=== PATIENT | male | born 1940 | race Caucasian/White ===

== ENCOUNTER 2017-11-28 11:53 | Inpatient (IN) | payer OTHER ==
[~2017-11-28] VITALS: Ht 177.8 cm; Wt 98.4 kg
[2017-11-28] MEDS ORDERED: SODIUM CHLORIDE 0.9% 1000ML 1,000 ML IV STA (12:03)
[2017-11-28] MEDS ORDERED: MORPHINE SULFATE 2 MG/ML SYR IV STA (12:03)
[2017-11-28] MEDS ORDERED: ONDANSETRON HCL INJ 2 MG/ML VIAL IV STA (12:03)
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
[2017-11-28 13:04] LABS: BASOPHILS % 0.5 % (0.0-1.0); EOSINOPHILS # (AUTO) 0.3 (0.0-0.4); EOSINOPHILS % 3.1 % (0.0-6.0); HEMATOCRIT 37.2 % (38.2-49.6); HEMOGLOBIN 12.6 g/dL (14.0-18.0); LYMPHOCYTES # (AUTO) 1.2 (1.0-3.2); MEAN CORPUSCULAR HGB CONC 33.9 g/dL (31-35); MEAN CORPUSCULAR VOLUME 91.6 fL (81-99); MONOCYTES # (AUTO) 0.8 (0.2-0.8); MONOCYTES % 9.9 % (4.4-11.3); PLATELET COUNT 220 x10e3/uL (140-360); RED BLOOD COUNT 4.06 x10e6/uL (4.3-5.7); RED CELL DISTRIBUTION WIDTH 13.1 % (11.7-14.4)
[2017-11-28 13:13] LABS: INR 1.09; PROTHROMBIN TIME 13.3 seconds (11.9-14.5)
[2017-11-28 13:14] LABS: PARTIAL THROMBOPLASTIN TIME 38.8 seconds (23.8-35.5)
[2017-11-28] MEDS ORDERED: ONDANSETRON HCL INJ 2 MG/ML VIAL IV PRN (13:15)
[2017-11-28] MEDS ORDERED: SODIUM CHLORIDE FLUSH 10 ML SYR INJ PRN (13:15)
[2017-11-28] MEDS: VANCOMYCIN 1GM/NS 250 ML 250 ML IV SCH (13:21)
[2017-11-28 13:24] LABS: ALBUMIN 3.4 g/dL (3.5-5.0); ALBUMIN/GLOBULIN RATIO 1.1 (0.8-2.0); CALCIUM 9.1 mg/dL (8.4-10.2); CREATININE, SERUM 1.18 mg/dL (0.72-1.25); MAGNESIUM 1.8 MG/DL (1.3-2.1)
[2017-11-28 13:43] LABS: CREATINE KINASE MB 2.6 ng/mL (0-5.0); THYROID STIMULATING HORMONE 1.746 uIU/mL (0.350-4.940)
[2017-11-28] MEDS ORDERED: HYDROCODONE/APAP 10MG-325MG TAB PO ONE (14:15)
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
[2017-11-28] MEDS: PIPER-TAZ 3.375 GM 50 ML IV SCH ×2 (15:15→22:44)
[2017-11-28] MEDS ORDERED: HYDROCODONE/APAP 10MG-325MG TAB PO PRN (16:30)
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
[2017-11-28] MEDS ORDERED: SODIUM CHLORIDE 0.9% 1000ML 1,000 ML ONE (23:08)
[2017-11-28 23:45] VITALS: BP 161/94
[2017-11-29] MEDS: VANCOMYCIN 1GM/NS 250 ML 250 ML IV SCH ×2 (00:20→12:15)
[2017-11-29] MEDS ORDERED: DOXEPIN HCL25 MG PO (04:46)
[2017-11-29] MEDS ORDERED: ZOLPIDEM TARTRAT5 MG PO (04:46)
[2017-11-29] MEDS ORDERED: LIPITOR20 MG PO (04:46)
[2017-11-29] MEDS ORDERED: SYNTHROID88 MCG PO (04:46)
[2017-11-29] MEDS ORDERED: ALLOPURINOL300 MG PO (04:46)
[2017-11-29] MEDS ORDERED: SOMA350 MG PO (04:46)
[2017-11-29] MEDS: PIPER-TAZ 3.375 GM 50 ML IV SCH ×2 (06:06→14:00)
[2017-11-29 06:25] LABS: EOSINOPHILS # (AUTO) 0.2 (0.0-0.4); EOSINOPHILS % 3.2 % (0.0-6.0); HEMATOCRIT 35.8 % (38.2-49.6); HEMOGLOBIN 11.9 g/dL (14.0-18.0); LYMPHOCYTES # (AUTO) 0.9 (1.0-3.2); LYMPHOCYTES % 14.5 % (18.0-39.1); MEAN CORPUSCULAR HEMOGLOBIN 31.1 pg (28-32); MEAN CORPUSCULAR HGB CONC 33.2 g/dL (31-35); MEAN CORPUSCULAR VOLUME 93.5 fL (81-99); MONOCYTES # (AUTO) 0.6 (0.2-0.8); MONOCYTES % 8.9 % (4.4-11.3); NEUTROPHILS # (AUTO) 4.6 (2.1-6.9); NEUTROPHILS % 72.9 % (38.7-80.0); PLATELET COUNT 195 x10e3/uL (140-360); RED BLOOD COUNT 3.83 x10e6/uL (4.3-5.7); RED CELL DISTRIBUTION WIDTH 13.1 % (11.7-14.4)
[2017-11-29 06:53] LABS: ANION GAP 11.3 mmol/L (8-16); BLOOD UREA NITROGEN 14 mg/dL (7-26); BUN/CREATININE RATIO 13 (6-25); CALCIUM 8.7 mg/dL (8.4-10.2); CARBON DIOXIDE 23 mmol/L (22-29); CHLORIDE 110 mmol/L (98-107); CREATININE, SERUM 1.05 mg/dL (0.72-1.25); EST GLOMERULAR FILTRATION RATE > 60 ML/MIN (60-); GLUCOSE 95 mg/dL (74-118); POTASSIUM 4.3 mmol/L (3.5-5.1); SODIUM 140 mmol/L (136-145)
[2017-11-29 07:59] VITALS: BP 115/64
[2017-11-29 08:00] VITALS: BP 115/64
--- NOTE | 2017-11-29 10:00 | Progress Note ---
DATE: November 29, 2017 SUBJECTIVE: The patient was seen at bedside. Having pain to the forefoot and plantar aspect of the right lower extremity. Also, some pain to the left lower extremity. OBJECTIVE VITALS: Afebrile. Pulse rate 82, respirations 18, blood pressure 115/64, O2 saturation at 95%. EXTREMITIES: Has pain to the medial aspect of the 1st MPJ and lateral aspect of the 5th metatarsophalangeal joint, plantar aspect of the right foot and left foot. Is denying any history of fever, chills, nausea, or vomiting. Has an abscess to the 4th interspace to the right foot with cellulitis up to the midfoot noted. Pedal pulses are palpable to both the DP and PT. LABS: Show a white blood cell count of 6.28, hemoglobin 11.9, hematocrit 35.8 with a platelet count of 195,000. ASSESSMENT 1. Hallux valgus deformity. 2. Tailor's bunion. 3. Foreign body times 2 with an abscess formation, right foot. 4. Grade 2 possibly 3 ulceration, plantar aspect of left foot measuring 2.5 to 3 cm in diameter. PLAN: The patient will be kept n.p.o. after midnight. The proposed surgery plus risks and complications were reviewed in great detail. Proposed surgery will be I and D of the right foot, removal of foreign body, deep, , Tailor's bunionectomy with a debridement of ulceration to the left foot. The patient understands. No warranties or guarantees can be given. Will continue IV antibiotics. EKG and chest x-ray will be done if not already done. Job#: [id number] OH
--- NOTE | 2017-11-29 10:04 | Diagnostic Imaging Report ---
PROCEDURE: Frontal and lateral views of the chest. COMPARISON: None. INDICATIONS: PREOPERATIVE CHEST XRAY FOR RIGHT FOOT SURGERY FINDINGS: Lines/tubes: None. Lungs: No focal consolidation. No parenchymal mass. Bibasilar atelectasis. Pleura: There is no pleural effusion or pneumothorax. Heart and mediastinum: The heart and the mediastinum are normal. Bones: No acute bony abnormality. Degenerative changes of the thoracic spine. IMPRESSION: No acute radiographic abnormality. Dictated by: Jamie Spencer M.D. on 11/29/2017 at 10:05 Electronically approved by: Jamie Spencer M.D. on 11/29/2017 at 10:05
[2017-11-29 11:43] VITALS: BP_SYST 155
[2017-11-29 12:30] VITALS: BP 133/80
[2017-11-29 16:04] VITALS: BP 172/95
[2017-11-29 17:00] VITALS: BP 150/80
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
--- NOTE | 2017-11-30 01:07 | Discharge Summary ---
Patient signed out against medical advice on November 29, 2017. FINAL DIAGNOSES 1. Foreign body on the right foot with plantar surface right foot infection. 2. Right foot pain. 3. Smoker with possible peripheral vascular disease. HOSPITAL COURSE: This is a 77-year-old male seen by Dr. Dragan Lutz. The patient had workup done. He had arterial Doppler. Had x-ray done. He has basically hallux valgus deformation, abscess and foreign body deep. The patient will need to continue IV antibiotic and wound care. Awaiting for culture. We were planning for surgical intervention possibly morning. However, the patient basically signed out against medical advice today. He left the hospital. The RN and the health team could not convince the patient to stay for further evaluation and possible surgical intervention in the morning. Patient is otherwise stable, however. He was allowed to leave per his choices. Job#: [id number]
== END 2017-11-29 19:20 | disposition left against medical advice (07) | DRG 603 ==
LOC: ER 11:53 → ERHOLD 14:25 → MED/SURG2 23:31
PROVIDERS: ADMIT Internal Medicine; ATTEND Internal Medicine
DX: L02.611 Cutaneous abscess of right foot (principal); L03.115 Cellulitis of right lower limb; J44.9 Chronic obstructive pulmonary disease, unspecified; L97.529 Non-pressure chronic ulcer of other part of left foot with unspecified severity; I73.9 Peripheral vascular disease, unspecified; S90.851A Superficial foreign body, right foot, initial encounter; I10 Essential (primary) hypertension; X58.XXXA Exposure to other specified factors, initial encounter; Z88.0 Allergy status to penicillin; F17.200 Nicotine dependence, unspecified, uncomplicated; M20.11 Hallux valgus (acquired), right foot
CPT/HCPCS: 36415; 71046; 80048; 80053; 82550; 82553; 82948; 83605; 83735; 84443; 84484; 85025; 85610; 85730; 87040; 87071; 87186; 87205; 93005; 93926; 99284; J2405; J2543; J3370; J7030

== ENCOUNTER 2017-11-30 11:07 | Inpatient (IN) | payer OTHER ==
[~2017-11-30] VITALS: Ht 177.8 cm; Wt 99.6 kg
[~2017-11-30 11:07] MED LIST: ALLOPURINOL300 MG PO; DOXEPIN HCL25 MG PO; LIPITOR20 MG PO; SOMA350 MG PO; SYNTHROID88 MCG PO; ZOLPIDEM TARTRAT5 MG PO
--- OUTSIDE RECORDS SUMMARY | 2017-11-30 11:09 | XMS REPORT | Continuity of Care Document ---
Author Author [facility] Organization [facility] Address [address] [place] [address] Phone Unavailable Care Team Providers Care General Merchandise Salesperson Name Role Phone JD LONG MD PCP Insurance Providers Guarantor Farida Calderon V Address [address] [place] [address] Email PTDECLINED Payer [facility] Policy Number [id number] Subscriber's Name Farida Calderon Zaira Relationship 18 Self / Same As Patient Advance Directives Directive Response Recorded Date/Time Does the patient have an advance directive? No 11/28/17 11:45pm If yes, is advance directive on file with [facility]? No 11/28/17 11:45pm If not on file with [facility] will patient provide a copy? No 11/28/17 11:45pm Do you have a Directive to Physician? No 11/28/17 1:34pm Do you have a Medical Power of Coffee Host? No 11/28/17 1:34pm Do you have an out of hospital Do Not Resuscitate Order? No 11/28/17 1:34pm Do you have any special needs we should be aware of? No 11/28/17 1:34pm Do you have a support person here with you today? Yes 11/28/17 1:34pm Did patient receive Notice of Privacy Practices? Yes 11/28/17 1:34pm Did patient receive patient rights and responsibilities? Yes 11/28/17 1:34pm Problems Medical Problem Onset Date Status Cellulitis of right foot Unknown Foreign body in foot, right, infected Unknown Medications Current Home Medications Medication Dose Units Route Directions Days Qty Instructions Start Date Allopurinol 300 Mg Tablet 300 Mg Oral Daily 30 Tab Atorvastatin Calcium (Lipitor) 20 Mg Tablet 10 Mg Oral Daily 30 Tab Carisoprodol (Soma) 350 Mg Tablet 350 Mg Oral Three Times A Day Doxepin Hcl 25 Mg Capsule 100 Mg Oral Daily 30 Cap Levothyroxine Sodium (Synthroid) 88 Mcg Tablet 88 Mcg Oral Today At 6:30AM 30 Tab Zolpidem Tartrate 5 Mg Tablet 5 Mg Oral Daily 30 Tab Social History Social History Problem Response Recorded Date/Time Onset Date Status Hx Psychiatric Problems No 11/28/2017 11:45pm Not Applicable Not Applicable Hx Eating Disorder No 11/28/2017 11:45pm Not Applicable Not Applicable Hx Substance Use Disorder No 11/28/2017 11:45pm Not Applicable Not Applicable Hx Depression Yes 11/28/2017 11:45pm Not Applicable Not Applicable Hx Alcohol Use No 11/28/2017 11:45pm Not Applicable Not Applicable Hx Substance Use Treatment No 11/28/2017 11:45pm Not Applicable Not Applicable Hx Physical Abuse No 11/28/2017 11:45pm Not Applicable Not Applicable Smoking Status Start Date Stop Date Current every day smoker Hospital Discharge Instructions No hospital discharge instruction information available. Plan of Care Discharge Date 11/29/17 7:20pm Disposition AGAINST MEDICAL ADVICE Prescriptions See Medication Section Functional Status Query Response Date Recorded Assistive Devices None November 28, 2017 11:45pm Ambulation Ability Independent November 28, 2017 11:45pm Toileting Ability Independent November 28, 2017 11:45pm Allergies, Adverse Reactions, Alerts No known allergies. Immunizations No immunization information available. Vital Signs Acute Vital Signs Vital Response Date/Time Temperature (Fahrenheit) 98.1 degrees F (97.6 - 99.5) 11/29/2017 4:04pm Pulse Pulse Rate (adult) 82 bpm (60 - 90) 11/29/2017 5:00pm Respiratory Rate 19 bpm (12 - 24) 11/29/2017 4:04pm Blood Pressure 150/80 mm Hg 11/29/2017 5:00pm Height 5 ft 10 in 11/28/2017 12:09pm Weight 217 lb 11/28/2017 12:09pm Body Mass Index 31.1 kg/m^2 11/28/2017 11:45pm Results Laboratory Results Test Name Result Units Flags Reference Collection Date/Time Result Date/ Time Comments White Blood Count 6.28 x10e3/uL 4.8-10.8 11/29/2017 6:08am 11/29/2017 6 :39am Red Blood Count 3.83 x10e6/uL L 4.3-5.7 11/29/2017 6:08am 11/29/2017 6: 39am Hemoglobin 11.9 g/dL L 14.0-18.0 11/29/2017 6:08am 11/29/2017 6:39am Hematocrit 35.8 % L 38.2-49.6 11/29/2017 6:08am 11/29/2017 6:39am Mean Corpuscular Volume 93.5 fL 81-99 11/29/2017 6:08am 11/29/2017 6: 39am Mean Corpuscular Hemoglobin 31.1 pg 28-32 11/29/2017 6:08am 11/29/2017 6:39am Mean Corpuscular Hemoglobin Concent 33.2 g/dL 31-35 11/29/2017 6:08am 11/29/2017 6:39am Red Cell Distribution Width 13.1 % 11.7-14.4 11/29/2017 6:08am 2017 6:39am Platelet Count 195 x10e3/uL 140-360 11/29/2017 6:08am 11/29/2017 6: 39am Neutrophils (%) (Auto) 72.9 % 38.7-80.0 11/29/2017 6:08am 11/29/2017 6: 39am Lymphocytes (%) (Auto) 14.5 % L 18.0-39.1 11/29/2017 6:08am 11/29/2017 6 :39am Monocytes (%) (Auto) 8.9 % 4.4-11.3 11/29/2017 6:08am 11/29/2017 6: 39am Eosinophils (%) (Auto) 3.2 % 0.0-6.0 11/29/2017 6:08am 11/29/2017 6: 39am Basophils (%) (Auto) 0.0 % 0.0-1.0 11/29/2017 6:08am 11/29/2017 6:39am IM GRANULOCYTES % 0.5 % 0.0-1.0 11/29/2017 6:08am 11/29/2017 6:39am Neutrophils # (Auto) 4.6 2.1-6.9 11/29/2017 6:08am 11/29/2017 6:39am Lymphocytes # (Auto) 0.9 L 1.0-3.2 11/29/2017 6:08am 11/29/2017 6: 39am Monocytes # (Auto) 0.6 0.2-0.8 11/29/2017 6:08am 11/29/2017 6:39am Eosinophils # (Auto) 0.2 0.0-0.4 11/29/2017 6:08am 11/29/2017 6:39am Basophils # (Auto) 0.0 0.0-0.1 11/29/2017 6:08am 11/29/2017 6:39am Absolute Immature Granulocyte (auto 0.03 x10e3/uL 0-0.1 11/29/2017 6: 08am 11/29/2017 6:39am Prothrombin Time 13.3 seconds 11.9-14.5 11/28/2017 12:25pm 11/28/2017 1 :14pm Prothromb Time International Ratio 1.09 11/28/2017 12:25pm 2017 1:14pm Oral Anticoagulant Therapy INR Values: 1. Low Intensity Therapy 1.5 - 2.0 2. Moderate Intensity Therapy 2.0 - 3.0 3. High Intensity Therapy(1) 2.5 - 3.5 4. High Intensity Therapy(2) 3.0 - 4.0 5. Panic Value INR > 5.0 Activated Partial Thromboplast Time 38.8 seconds H 23.8-35.5 11/28/2017 12:25pm 11/28/2017 1:14pm Sodium Level 140 mmol/L 136-145 11/29/2017 6:08am 11/29/2017 6:55am Potassium Level 4.3 mmol/L 3.5-5.1 11/29/2017 6:08am 11/29/2017 6:55am Chloride Level 110 mmol/L H 98-107 11/29/2017 6:08am 11/29/2017 6:55am Carbon Dioxide Level 23 mmol/L 22-29 11/29/2017 6:08am 11/29/2017 6: 55am Anion Gap 11.3 mmol/L 8-16 11/29/2017 6:08am 11/29/2017 6:55am Blood Urea Nitrogen 14 mg/dL 7-11/29/2017 6:08am 11/29/2017 6:55am Creatinine 1.05 mg/dL 0.72-1.25 11/29/2017 6:08am 11/29/2017 6:55am BUN/Creatinine Ratio 13 611/29/2017 6:08am 11/29/2017 6:55am Estimat Glomerular Filtration Rate > 60 ML/MIN 60- 11/29/2017 6:08am 6:55am Ranges were taken from the National Kidney Disease Education Program and the National Kidney Foundation literature. Reference ranges: 60 or greater: Normal 16-59 (for 3 consecutive months): Chronic kidney disease 15 or less: Kidney failure Glucose Level 95 mg/dL 74-118 11/29/2017 6:08am 11/29/2017 6:55am Calcium Level 8.7 mg/dL 8.4-10.2 11/29/2017 6:08am 11/29/2017 6:55am Bedside Glucose 99 mg/dL 70-120 11/29/2017 3:54pm 11/29/2017 4:05pm Meter ID: [id number] Lactic Acid Level 9.6 MG/DL 4.5-19.8 11/28/2017 12:25pm 11/28/2017 1: 23pm Magnesium Level 1.8 MG/DL 1.3-2.1 11/28/2017 12:25pm 11/28/2017 1:27pm Total Bilirubin 0.3 mg/dL 0.2-1.2 11/28/2017 12:25pm 11/28/2017 1:27pm Aspartate Amino Transf (AST/SGOT) 15 IU/L 5-34 11/28/2017 12:25pm 11/28 1:27pm Alanine Aminotransferase (ALT/SGPT) 13 IU/L 0-55 11/28/2017 12:25pm 1:27pm Total Protein 6.6 g/dL 6.5-8.1 11/28/2017 12:25pm 11/28/2017 1:27pm Albumin 3.4 g/dL L 3.5-5.0 11/28/2017 12:25pm 11/28/2017 1:27pm Globulin 3.2 g/dL 2.3-3.5 11/28/2017 12:25pm 11/28/2017 1:27pm Albumin/Globulin Ratio 1.1 0.8-2.0 11/28/2017 12:25pm 11/28/2017 1: 27pm Alkaline Phosphatase 98 IU/L 40-150 11/28/2017 12:25pm 11/28/2017 1: 27pm Creatine Kinase 72 IU/L 30-200 11/28/2017 12:25pm 11/28/2017 1:27pm Creatine Kinase MB 2.60 ng/mL 0-5.0 11/28/2017 12:25pm 11/28/2017 1: 44pm Troponin I 0.026 ng/mL 0-0.300 11/28/2017 12:25pm 11/28/2017 1:44pm Thyroid Stimulating Hormone (TSH) 1.746 uIU/mL 0.350-4.940 11/28/2017 12 :25pm 11/28/2017 1:44pm Microbiology Results Procedure Source Organism/Result Collection Date/Time Result Date/Time Result Status Blood Culture Blood NO GROWTH AFTER 24 HOURS 11/28/2017 12:25pm 2017 1:00pm Preliminary Wound Culture Foot, Right STREPTOCOCCUS SPECIES 11/28/2017 12:15pm 2017 11:13am Preliminary Procedures Procedure Status Date Provider(s) Removal of foreign body Active 12/01/17 THERON PIZARRO DPM X-ray of chest, two views Active 11/29/17 THERON PIZARRO DPM Encounters Encounter Location Arrival/Admit Date Discharge/Depart Date Attending Provider Discharged Inpatient [facility] 11/28/17 2:25pm 11/29/17 7:20pm VARGAS GOMEZ MD
[2017-11-30] MEDS ORDERED: ONDANSETRON HCL INJ 2 MG/ML VIAL IV STA (11:21)
[2017-11-30] MEDS ORDERED: MORPHINE SULFATE 2 MG/ML SYR IV STA (11:21)
[2017-11-30] MEDS ORDERED: PIPER-TAZ 3.375 GM 50 ML IV STA ×2 (11:21→11:45)
[2017-11-30] MEDS ORDERED: SODIUM CHLORIDE FLUSH 10 ML SYR INJ PRN (11:45)
[2017-11-30 11:57] LABS: BASOPHILS % 0.5 % (0.0-1.0); EOSINOPHILS # (AUTO) 0.3 (0.0-0.4); EOSINOPHILS % 4.8 % (0.0-6.0); HEMATOCRIT 38.1 % (38.2-49.6); HEMOGLOBIN 12.9 g/dL (14.0-18.0); LYMPHOCYTES # (AUTO) 1.2 (1.0-3.2); LYMPHOCYTES % 18.8 % (18.0-39.1); MEAN CORPUSCULAR HEMOGLOBIN 31.4 pg (28-32); MEAN CORPUSCULAR HGB CONC 33.9 g/dL (31-35); MEAN CORPUSCULAR VOLUME 92.7 fL (81-99); MONOCYTES # (AUTO) 0.4 (0.2-0.8); MONOCYTES % 6.5 % (4.4-11.3); NEUTROPHILS # (AUTO) 4.5 (2.1-6.9); NEUTROPHILS % 68.9 % (38.7-80.0); PLATELET COUNT 232 x10e3/uL (140-360); RED BLOOD COUNT 4.11 x10e6/uL (4.3-5.7)
[2017-11-30] MEDS ORDERED: VANCOMYCIN 1GM/NS 250 ML 250 ML IV ONE (12:00)
[2017-11-30 12:15] LABS: ALANINE AMINOTRANSFERASE 16 IU/L (0-55); ALBUMIN 3.3 g/dL (3.5-5.0); ALBUMIN/GLOBULIN RATIO 0.9 (0.8-2.0); ALKALINE PHOSPHATASE 82 IU/L (40-150); ANION GAP 12.7 mmol/L (8-16); BLOOD UREA NITROGEN 11 mg/dL (7-26); BUN/CREATININE RATIO 10 (6-25); CALCIUM 9.4 mg/dL (8.4-10.2); CARBON DIOXIDE 27 mmol/L (22-29); CHLORIDE 105 mmol/L (98-107); EST GLOMERULAR FILTRATION RATE > 60 ML/MIN (60-); GLUCOSE 216 mg/dL (74-118); POTASSIUM 3.7 mmol/L (3.5-5.1); SODIUM 141 mmol/L (136-145)
[2017-11-30] MEDS: VANCOMYCIN 1GM/NS 250 ML 250 ML IV SCH ×2 (13:10→22:15)
[2017-11-30] MEDS: MORPHINE SULFATE 2 MG/ML SYR IV PRN ×2 (17:45→22:25)
[2017-11-30] MEDS: ONDANSETRON HCL INJ 2 MG/ML VIAL IV PRN ×2 (17:45→22:38)
--- NOTE | 2017-11-30 21:10 | Progress Note ---
DATE: November 30, 2017 Male, age 77. SUBJECTIVE: Patient seen in the ER, having some pain and tenderness to the right lower extremity and also, pain to the plantar aspect of the left foot. Denying history of fever, chills, nausea or vomiting. OBJECTIVE: VITAL SIGNS: Afebrile. Pulse rate 81, respiration 19, blood pressure 163/92, saturation . LABS: Noted. White blood cell count 6.5, hemoglobin 12.9, hematocrit of 38.1 with a platelet count of 232,000. Has pain overlying the 1st MPJ right foot, pain overlying the 5th metatarsophalangeal joint right lower extremity, with pain to the mid arch region right foot, and to the 4th interspace of the right lower extremity. Has a grade-2, possible 3 ulceration of the left lower extremity measuring 2 x 4 cm in diameter. Pedal pulses are palpable. There was cellulitis up to the midfoot with some drainage and abscess to the 4th interspace right foot. Has a foreign body times 2, one to the 4th metatarsophalangeal joint and 1 to the plantar aspect of the right foot, also painful has erythema surrounding the 1st MPJ and 5th metatarsophalangeal joint right foot. With a grade-2 possibly grade-3 ulceration left lower extremity. ASSESSMENT 1. Hallux valgus deformity, tailor's bunion abscess right foot. 2. Foreign body times 2 right foot. 3. With a grade 2/3 ulceration of the left lower extremity. PLAN: Patient will be taken for surgical intervention tomorrow. Will be kept in p.o. after midnight. The proposed surgery plus risks and complications reviewed in great detail. No guarantees were given. Patient instructed. If not responsive, may need further surgery. Proposed surgery will be a Silver bunionectomy left lower extremity, tailor's bunionectomy left foot, removal of foreign body 4th metatarsophalangeal joint with I and D of abscess with also removal of deep foreign body to the mid arch region of left lower extremity with debridement of ulceration to the left lower extremity. Both surgery was explained in full detail. Patient was given time to ask questions. All questions were answered. No guarantees were given. Job#: [id number] CQ
[2017-11-30 23:30] VITALS: BP_SYST 148; BP_SYST 198; BP_DIAS 78; BP_DIAS 95
[2017-11-30] MEDS ORDERED: SODIUM CHLORIDE 0.9% 250ML 250 ML ONE (23:45)
[2017-12-01] VITALS: BP 198/95
[2017-12-01 04:00] VITALS: BP 140/81
[2017-12-01 06:58] LABS: BASOPHILS % 0.5 % (0.0-1.0); EOSINOPHILS # (AUTO) 0.3 (0.0-0.4); EOSINOPHILS % 5.8 % (0.0-6.0); HEMATOCRIT 38.3 % (38.2-49.6); HEMOGLOBIN 12.6 g/dL (14.0-18.0); LYMPHOCYTES # (AUTO) 1.5 (1.0-3.2); LYMPHOCYTES % 25.3 % (18.0-39.1); MEAN CORPUSCULAR HGB CONC 32.9 g/dL (31-35); MEAN CORPUSCULAR VOLUME 94.1 fL (81-99); MONOCYTES # (AUTO) 0.4 (0.2-0.8); MONOCYTES % 7.1 % (4.4-11.3); NEUTROPHILS # (AUTO) 3.6 (2.1-6.9); PLATELET COUNT 241 x10e3/uL (140-360); RED BLOOD COUNT 4.07 x10e6/uL (4.3-5.7); RED CELL DISTRIBUTION WIDTH 12.9 % (11.7-14.4)
[2017-12-01] MEDS ORDERED: BUPIVACAINE HCL 0.5% INJ 30 ML VIAL INJ ONE (07:01)
[2017-12-01] MEDS ORDERED: BETAMETHASONE DISODIUM PHOS 6 MG/ML VIAL ONE (07:01)
[2017-12-01] MEDS ORDERED: FAMOTIDINE 20 MG/2 ML VIAL IV ONE ×2 (07:23→17:40)
[2017-12-01 07:27] LABS: ALANINE AMINOTRANSFERASE 18 IU/L (0-55); ALBUMIN 3.2 g/dL (3.5-5.0); ALKALINE PHOSPHATASE 83 IU/L (40-150); ANION GAP 12.8 mmol/L (8-16); BLOOD UREA NITROGEN 11 mg/dL (7-26); BUN/CREATININE RATIO 11 (6-25); CALCIUM 9.3 mg/dL (8.4-10.2); CARBON DIOXIDE 25 mmol/L (22-29); CHLORIDE 108 mmol/L (98-107); CREATININE, SERUM 0.98 mg/dL (0.72-1.25); EST GLOMERULAR FILTRATION RATE > 60 ML/MIN (60-); GLUCOSE 117 mg/dL (74-118); POTASSIUM 3.8 mmol/L (3.5-5.1); SODIUM 142 mmol/L (136-145)
[2017-12-01] MEDS ORDERED: BACITRACIN 50,000 UNIT VIAL ONE (08:18)
[2017-12-01] MEDS ORDERED: MUPIROCIN 2% OINT 22 GM TUBE ONE (09:10)
[2017-12-01] MEDS ORDERED: MORPHINE SULFATE 2 MG/ML SYR ONE (10:06)
--- NOTE | 2017-12-01 10:23 | Operative Report ---
DATE OF PROCEDURE: December 01, 2017 PREOPERATIVE DIAGNOSES 1. Hallux valgus deformity, right foot. 2. Tailor's bunion, right foot. 3. Abscess, right foot. 4. Foreign body times 2, two different areas, right foot. 5. Grade 2 ulceration, left foot. POSTOPERATIVE DIAGNOSES 1. Hallux valgus deformity, right foot. 2. Tailor's bunion, right foot. 3. Abscess, right foot. 4. Foreign body times 2, two different areas, right foot. 5. Grade 2 ulceration, left foot. OPERATIVE PROCEDURES 1. Silver bunionectomy, right foot. 2. Tailor's bunionectomy, right foot. 3. Removal of foreign body, plantar aspect, right foot, deep. 4. Incision and drainage of abscess to the dorsal aspect of the 4th metatarsophalangeal joint, right foot. 5. Removal of deep foreign body, plantar aspect, 4th metatarsophalangeal joint, right foot. 6. Debridement of ulceration down to subcutaneous tissue, left foot. 7. Intraoperative use of fluoroscopy. ANESTHESIA: General. HEMOSTASIS: Pneumatic calf tourniquet at 350 mmHg. PROCEDURE IN DETAIL: Patient was taken into the operating room and placed on the operating table in the supine position. Following induction of general anesthesia by the anesthesiologist, Webril wraps were placed on the patient's right calf followed by application of a right calf tourniquet. The right lower extremity was then prepped and draped in the usual aseptic manner. The following procedure was then performed: PROCEDURE #1: Silver bunionectomy, right foot. Attention was directed to the dorsomedial aspect of the 1st MPJ where a 6 cm linear incision was performed. Incision was deepened down to the joint capsule. Longitudinal capsulotomy was then performed exposing a dorsomedial exostosis of the 1st metatarsal head. Via use of an oscillating saw and rotating bur, the dorsum of the exostosis was excised from the operation site in toto. All rough and bony edges were rasped smooth via the use of a rotating birdie. PROCEDURE #2: Tailor's bunionectomy, right foot. Attention was then directed to the 5th metatarsophalangeal joint where a 3-4 cm linear incision was performed. Incision was deepened down to the 5th metatarsophalangeal joint capsule. A longitudinal capsulotomy was then performed exposing a dorsolateral exostosis to the 5th metatarsal head. Via the use of an oscillating saw and rotating bur, the dorsolateral exostosis was excised from the operation site in toto. All rough and bony edges were rasped smooth. PROCEDURE #3: Removal of deep foreign body, right foot plantarly. Attention was directed to the mid-plantar aspect of the right foot where a 6 cm linear incision was performed. Incision was deepened down to the level of the subcutaneous tissue and fascia. Utilizing intraoperative fluoroscopy, the needle was triangulated and excised from the operation site in toto. All areas were then copiously flushed with sterile antibiotic solution and suctioned. PROCEDURE #7: Intraoperative use of fluoroscopy was then used once again to make sure the foreign body was completely removed. PROCEDURE #4: I and D of abscess, dorsal aspect of the 4th metatarsophalangeal joint. Attention was then directed to the dorsal aspect of the 4th MPJ where a 6 cm linear incision was performed. Incision was deepened down to the joint capsule dorsally. Purulent drainage was obtained. Abscess was encountered going down to bone. The abscess was I and D, and deep cultures were taken for aerobic and anaerobic growth. All necrotic tissue was removed via sharp and blunt dissection until good viable tissue was achieved. PROCEDURE #5: Removal of foreign body to the plantar aspect of the 4th metatarsophalangeal joint, right foot. Attention was then directed to the plantar aspect of the 4th MPJ where a 4 cm linear incision was performed. Using triangulation, the incision was deepened down to the plantar aspect of the 4th metatarsophalangeal joint. A deep foreign body was encountered and removed in toto. PROCEDURE #7: Once again, intraoperative use of fluoroscopy was then used to make sure proper remove all foreign body was done. All areas were then copiously flushed with sterile antibiotic solution and suctioned. Closure was then obtained utilizing 3-0 Vicryl, 4-0 Vicryl and 4-0 nylon for capsule, subcutaneous tissue and skin respectively. Approximately, 10-15 mL of 0.5% plain Marcaine was then used to achieve local anesthesia of the above-mentioned surgical area. Sterile dressing was applied. Upon release of the calf tourniquet, blood hyperemia was noted immediate to all digits of the patient's right foot. PROCEDURE #6: Debridement of ulceration, left lower extremity. Attention was then directed to the plantar aspect of the left foot where utilizing a sterile 10 blade the ulceration measuring approximately 2 x 4 cm in diameter was debrided down to subcutaneous tissue. Devitalized tissue sharply excised until good bleeding viable tissue was achieved. No bone or tendon was exposed. Sterile dressing was applied. Approximately, 5 mL of 0.5% plain Marcaine was used to achieve local anesthesia of the above-mentioned surgical area. A sterile dressing was applied. Patient was then transferred from the OR to the recovery room with vital signs stable and neurovascular status intact. No intraoperative complications were encountered. Blood loss from the surgery was minimal. Patient is to remain nonweightbearing with the aid of crutches. Keep his foot elevated. He is to apply an ice pack to the ankle joint area. Patient will remain in the hospital for a couple of days for IV antibiotics. Patient understands and no warranties or guarantees were given. He may need further surgery if not responsive to IV antibiotics and wound care. Job#: [id number] NM
[2017-12-01] MEDS ORDERED: CELECOXIB 100 MG CAP PO SCH (11:00)
[2017-12-01] MEDS ORDERED: NICOTINE 21 MG/EA PATCH TOP PRN (11:00)
--- NOTE | 2017-12-01 11:01 | Diagnostic Imaging Report ---
PROCEDURE:X-RAY RIGHT FOOT, TWO VIEWS COMPARISON:Right foot, 3 views 11/28/2017. INDICATIONS:REMOVE FOREIGN BODIES FROM RT. FOOT FINDINGS: Interval removal of the foreign bodies within the plantar aspect of the foot. No additional foreign bodies are visualized. There are no fractures, dislocations, lytic or blastic lesions. Bandages projecting over the distal foot. The bones are well-mineralized. The soft-tissues are unremarkable. CONCLUSION: Interval removal of the metallic foreign bodies. Dictated by: Jamie Spencer M.D. on 12/01/2017 at 11:01 Electronically approved by: Jamie Spencer M.D. on 12/01/2017 at 11:01
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
[2017-12-01 12:00] VITALS: BP 186/91
[2017-12-01] MEDS: VANCOMYCIN 1GM/NS 250 ML 250 ML IV SCH ×2 (12:00→23:47)
[2017-12-01] MEDS: MORPHINE SULFATE 2 MG/ML SYR IV PRN ×2 (14:30→21:27)
[2017-12-01] MEDS: PIPER-TAZ 3.375 GM 50 ML IV SCH ×2 (15:40→21:16)
[2017-12-01 16:00] VITALS: BP 185/99
[2017-12-01] MEDS: CELECOXIB 200 MG CAP PO SCH (17:30)
[2017-12-01] MEDS ORDERED: ONDANSETRON HCL INJ 2 MG/ML VIAL ONE (17:40)
[2017-12-01] MEDS ORDERED: SEVOFLURANE INHAL SOLN 250 ML PEN BTL ONE (17:40)
[2017-12-01] MEDS ORDERED: LIDOCAINE HCL 2% LOCAL INJ 5 ML SDV VIAL INJ ONE (17:40)
[2017-12-01] MEDS ORDERED: PROPOFOL IV EMULSION 10 MG/ML 20 ML VIAL ONE (17:40)
[2017-12-01] MEDS ORDERED: FENTANYL CITRATE/PF 100MCG/2 ML INJ ONE (17:57)
[2017-12-01] MEDS ORDERED: MIDAZOLAM HCL 2 MG/2 ML VIAL ONE (17:57)
[2017-12-01 20:58] VITALS: BP 173/84
[2017-12-02] VITALS (7 sets, daily range): BP systolic 116–173; BP diastolic 56–84
[2017-12-02] MEDS: VANCOMYCIN 1GM/NS 250 ML 250 ML IV SCH ×2 (00:10→12:00)
[2017-12-02] MEDS: MORPHINE SULFATE 2 MG/ML SYR IV PRN ×3 (01:38→18:05)
[2017-12-02] MEDS: PIPER-TAZ 3.375 GM 50 ML IV SCH ×3 (04:35→21:20)
--- NOTE | 2017-12-02 06:14 | Diagnostic Imaging Report ---
FOOT RIGHT AP LAT Comparison: Previous day Clinical history: Right foot after foreign body removal Findings: Severe first MTP degenerative changes. Soft tissue swelling about the forefoot and plantar aspect of the foot. No radiopaque foreign body. Impression: Soft tissue swelling without acute bony abnormality Signed by: Dr Martha Layton MD on 12/02/2017 6:10 AM
[2017-12-02 08:01] LABS: BASOPHILS % 0.4 % (0.0-1.0); EOSINOPHILS # (AUTO) 0.2 (0.0-0.4); EOSINOPHILS % 2.8 % (0.0-6.0); HEMATOCRIT 34.6 % (38.2-49.6); HEMOGLOBIN 11.6 g/dL (14.0-18.0); LYMPHOCYTES # (AUTO) 1.7 (1.0-3.2); LYMPHOCYTES % 19.8 % (18.0-39.1); MEAN CORPUSCULAR HEMOGLOBIN 30.9 pg (28-32); MEAN CORPUSCULAR HGB CONC 33.5 g/dL (31-35); MEAN CORPUSCULAR VOLUME 92.3 fL (81-99); MONOCYTES # (AUTO) 0.9 (0.2-0.8); MONOCYTES % 10.9 % (4.4-11.3); NEUTROPHILS # (AUTO) 5.6 (2.1-6.9); NEUTROPHILS % 65.7 % (38.7-80.0); PLATELET COUNT 237 x10e3/uL (140-360); RED BLOOD COUNT 3.75 x10e6/uL (4.3-5.7); RED CELL DISTRIBUTION WIDTH 12.6 % (11.7-14.4)
[2017-12-02] MEDS: CELECOXIB 200 MG CAP PO SCH ×2 (08:25→17:30)
--- NOTE | 2017-12-02 19:25 | Progress Note ---
DATE: December 02, 2017 SUBJECTIVE: Patient seen at bedside. Doing better. Denies any history of fever, chills, nausea or vomiting. OBJECTIVE VITAL SIGNS: Afebrile, pulse rate 79, respiration 18, blood pressure 141/76, O2 saturation 97%. LABS: Noted, has a white blood cell count of 8.4, hemoglobin 11.6 with a platelet count of 237,000. Ulceration to the left lower extremity improving significantly down to subcutaneous tissue. Chronic fibrotic base noted. Dressing to the right lower extremity seems to be intact, some bloody strikethrough noted overlying the medial aspect of the 1st MPJ. ASSESSMENT: Grade-2 ulceration healing well, left foot, status post right foot surgery, multiple procedures. PLAN: Continue local wound. Continue offloading. Dressings will be changed tomorrow. If looking good, patient may be discharged either tomorrow or Monday. Will continue vancomycin IV and Zosyn. Job#: [id number]
[2017-12-03 01:00] VITALS: BP 173/99
[2017-12-03] MEDS: PIPER-TAZ 3.375 GM 50 ML IV SCH ×2 (05:00→12:15)
[2017-12-03 07:55] VITALS: BP 183/91
[2017-12-03] MEDS: CELECOXIB 200 MG CAP PO SCH (09:10)
[2017-12-03] MEDS: ONDANSETRON HCL INJ 2 MG/ML VIAL IV PRN ×2 (12:04→12:30)
[2017-12-03 13:03] VITALS: BP 182/88
[2017-12-03] MEDS: VANCOMYCIN 1GM/NS 250 ML 250 ML IV SCH (13:30)
--- NOTE | 2017-12-03 15:27 | Progress Note ---
DATE: December 03, 2017 SUBJECTIVE: The patient was seen at bedside accompanied by son, doing well, decreased pain to both lower extremities. Denies any history of fever, chills, nausea or vomiting. OBJECTIVE VITAL SIGNS: Afebrile. Pulse rate 82, respiration 19, blood pressure 182/88, O2 saturation 96%. EXTREMITIES: Ulceration to the left lower extremity healing well. It is down to subcutaneous tissue. Decreased periwound cellulitis present. Incision sites to the right lower extremity looks really good. No evidence of an type of surgical dehiscence. Decreased cellulitis. No signs of infection. ASSESSMENT: Grade 2 ulcer, left foot, status post right foot multiple procedures. PLAN: Okay for patient to be discharged today if okay with Dr. Ramirez after he receives his dose of IV antibiotics. Dressings were changed. The patient was instructed on proper postoperative care. Will be seen after he gets back from his cruise. Was instructed to wear his [employer] walking boot at all times, not to walk barefoot. Not to remove dressing. Prescription for doxycycline 100 mg was given to be taken as directed. Job#: [id number]
[2017-12-03 15:56] VITALS: BP 162/96
[2017-12-03] MEDS ORDERED: DOXYCYCLINE HY100 MG PO ×2 (17:04→17:05)
--- NOTE | 2018-02-07 21:53 | Discharge Summary ---
FINAL DIAGNOSES 1. Right foot abscess and cellulitis. 2. Status post right foot abscess incision and drainage. 3. Arrangement for home antibiotic. SUMMARY: Patient is a pleasant 77-year-old male, came in with right foot abscess and cellulitis of the foot. The patient is now status post right foot postop care. He is stable. Antibiotic arrangement. The patient will continue with antibiotic as an outpatient. Patient will be followed by Dr. Dragan Lutz. The patient is stable. Resume home medication on discharge. Discharge home activity, as tolerated. Nonweightbearing to the right foot until cleared by Dr. Lutz. Continue with antibiotic as arranged. Job#: [id number] CQ
== END 2017-12-03 17:13 | disposition home or self-care (01) | DRG 902 ==
LOC: ER 11:07 → ERHOLD 13:53 → MED/SURG3 22:50
PROVIDERS: ADMIT Internal Medicine; ATTEND Internal Medicine
PROC: 0JBQ0ZZ Excision of Right Foot Subcutaneous Tissue and Fascia, Open Approach (ICD-10-PCS; 2017-12-01)
PROC: 0SCM0ZZ Extirpation of Matter from Right Metatarsal-Phalangeal Joint, Open Approach (ICD-10-PCS; 2017-12-01)
PROC: 0JCQ0ZZ Extirpation of Matter from Right Foot Subcutaneous Tissue and Fascia, Open Approach (ICD-10-PCS; 2017-12-01)
PROC: 0QBN0ZZ Excision of Right Metatarsal, Open Approach (ICD-10-PCS; principal; 2017-12-01 07:30)
PROC: 0JBR0ZZ Excision of Left Foot Subcutaneous Tissue and Fascia, Open Approach (ICD-10-PCS; 2017-12-01 07:30)
PROC: 0QBN0ZZ Excision of Right Metatarsal, Open Approach (ICD-10-PCS; 2017-12-01 07:30)
DX: S91.341A Puncture wound with foreign body, right foot, initial encounter (principal); L97.913 Non-pressure chronic ulcer of unspecified part of right lower leg with necrosis of muscle; E11.51 Type 2 diabetes mellitus with diabetic peripheral angiopathy without gangrene; E11.621 Type 2 diabetes mellitus with foot ulcer; L03.115 Cellulitis of right lower limb; M20.11 Hallux valgus (acquired), right foot; B96.89 Other specified bacterial agents as the cause of diseases classified elsewhere; J44.9 Chronic obstructive pulmonary disease, unspecified; F17.210 Nicotine dependence, cigarettes, uncomplicated; Z79.4 Long term (current) use of insulin; Z91.19 Patient's noncompliance with other medical treatment and regimen; W45.0XXA Nail entering through skin, initial encounter; Y92.009 Unspecified place in unspecified non-institutional (private) residence as the place of occurrence of the external cause
CPT/HCPCS: 36415; 80053; 80202; 82948; 85025; 87071; 87075; 87205; 93005; 96360; 99284; J0720; J2001; J2250; J2270; J2405; J2543; J3370; J7050

== ENCOUNTER 2025-02-12 16:56 | Emergency (ER) | payer MEDICARE ==
[~2025-02-12] VITALS: Ht 182.9 cm; Wt 81.6 kg
[~2025-02-12 16:56] MED LIST changes: +CIPRO500 MG PO; +CYCLOBENZAPRINE10 MG PO; +DOXYCYCLINE HY100 MG PO; +METRONIDAZOLE500 MG PO; +ONDANSETRON ODT4 MG SL; +TRAZODONE HCL50 MG PO; +VALSARTAN-HCTZ1 EAC2
[2025-02-12 17:32] VITALS: TEMP 98.1
[2025-02-12] MEDS: TRAMADOL HCL 50 MG TAB PO STA (19:14)
[2025-02-12] MEDS: ALLOPURINOL 300 MG TAB PO STA (20:33)
[2025-02-12] MEDS: PREDNISONE 20 MG TAB PO STA (20:34)
[2025-02-12] MEDS: Morphine 4mg INJECTION 4 MG/ML INJ IM STA (20:40)
[2025-02-12] MEDS ORDERED: COLCRYS0.6 MG PO (20:44)
[2025-02-12] MEDS ORDERED: ULTRAM 50MG50 MG PO (20:44)
[2025-02-12] MEDS ORDERED: PREDNISONE20 MG PO (20:44)
[2025-02-12 20:55] VITALS: PULSE 93; RESP 18; O2SAT 100
[2025-02-12] MEDS ORDERED: COLCHICINE0.6 M1 PO (21:22)
== END 2025-02-12 22:38 | disposition home or self-care (01) ==
LOC: ER 18:21
DX: M25.562 Pain in left knee (principal); M25.561 Pain in right knee; M17.11 Unilateral primary osteoarthritis, right knee; M25.461 Effusion, right knee; M10.9 Gout, unspecified; E03.9 Hypothyroidism, unspecified; E78.5 Hyperlipidemia, unspecified; F17.210 Nicotine dependence, cigarettes, uncomplicated
CPT/HCPCS: 73562; 99284; J2270; J7512